=== PATIENT | female | born 1945 | race Caucasian/White ===

== ENCOUNTER 2017-11-09 06:59 | Day surgery (SDC) | payer MEDICARE ==
[~2017-11-09] VITALS: Ht 167.6 cm; Wt 54.5 kg
--- NOTE | ~2017-11-09 | OP ---
PATIENT NAME: KENNY NEELY MEDICAL RECORD: [id number] :49 LOCATION:D.OPS ADMISSION DATE: SURGEON: GIL GOMEZ MD DATE OF OPERATION: 11/09/2017 PREOPERATIVE DIAGNOSES: 1. Dysphagia. 2. Epigastric abdominal pain. 3. Gastroesophageal reflux. POSTOPERATIVE DIAGNOSES: 1. Dysphagia. 2. Epigastric abdominal pain. 3. Gastroesophageal reflux. 4. Mid esophageal circumferential mass, undoubtedly a malignancy. It was 29 cm from the teeth to 43 cm. PROCEDURES: Esophagogastroduodenoscopy with antral and mid esophageal biopsies at the site of the circumferential mass. SURGEON: Gil Gomez MD PURIFICATION SUPERVISOR: None. BLOOD LOSS: Minimal. ANESTHESIA: IV sedation. COMPLICATIONS: None. The risks, possible complications, and alternatives to the procedure were explained to the patient. She elects to proceed. The reason for the anesthesia staff being present during the procedure includes anxiety regarding the procedure and the possible need for airway manipulation and suctioning, which was necessary during the procedure. ENDOSCOPIC COURSE: The patient was conveyed to the endoscopy suite electively on 11/09/2017. IV sedation was induced by the anesthesia staff. A bite block was inserted. A gastroscope was inserted into the mouth. It was advanced easily into the hypopharynx. The esophagus was easily intubated as were the stomach and duodenum. Antral biopsies were obtained. Biopsies were liberally performed at the site of the mid esophageal mass, which was quite firm and was circumferential. The endoscope was then withdrawn under direct vision. Notified Dr. Leblanc of the endoscopic findings. I will see the patient in my office in 1 week. She will need a referral to an oncologist. TRANSINT:[id number] Voice Confirmation ID: [id number] DOCUMENT ID: [id number] OPERATIVE REPORT [id number] KENNY NEELY GIL GOMEZ MD CC: LACHELLE LEBLANC DO [id number] DICTATION DATE: 11/09/1742 SANITATION TRUCK DRIVER: 11/09/17 1046 [facility] 11/09/[address] [address]
--- NOTE | ~2017-11-09 | HP ---
PATIENT: KENNY NEELY MEDICAL RECORD: [id number] ACCOUNT: [id number] LOCATION:[facility] : 49 ADMISSION DATE: 11/09/17 HISTORY AND PHYSICAL EXAMINATION CHIEF COMPLAINT: Dysphagia. HISTORY OF PRESENT ILLNESS: The patient has been having some epigastric as well as chest pain as well as dysphagia and the dysphagia is at the level of the cricopharyngeus. I am going to plan for an EGD with esophageal dilation. ALLERGIES: TETRACYCLINE, TYLENOL, CODEINE, ERYTHROMYCIN. HOME MEDICATIONS: Celexa, Protonix, Carafate. SOCIAL HISTORY: She is a smoker, 87-[id number]-jfbv history. REVIEW OF SYSTEMS: Negative for coronary artery disease or hypertension. Negative for CVA or seizures. Negative for diabetes or thyroid problems. PHYSICAL EXAMINATION: GENERAL: She does not appear acutely ill. She does appear chronically ill. VITAL SIGNS: Reviewed. The entire physical examination was performed in the presence of a female nurse. NECK: Trachea is midline. CHEST: No intercostal retractions. PULMONARY: Nonlabored, no stridor. ABDOMEN: No peritonitis with movement. IMPRESSION: 1. Epigastric abdominal pain. 2. Gastroesophageal reflux. 3. Dysphagia. PLAN: EGD with esophageal dilation. TRANSINT:[id number] Voice Confirmation ID: [id number] DOCUMENT ID: [id number] KAYLEE GOMEZ MD CC: LACHELLE LEBLANC DO [id number] DICTATION DATE: 11/09/17903 STEREOPTICIAN: 11/09/1731 [facility] 11/09/17 [id number] [place] [address]
[~2017-11-09 06:59] MED LIST: ALEVE220 MG PO; CELEXA10 MG PO; NORCO 10/325 TA1 TA1 PO; NORCO 7.5-3251 EACH PO; PERCOCET 5/3251 TA1 PO; XARELTO10 MG PO
[2017-11-09 07:25] LABS: HEMATOCRIT 35.1 % (36.0-48.0); HEMOGLOBIN 11.4 g/dL (12-16); MCH 28.5 pg (26.0-34.0); MCHC 32.5 g/dL (31.0-37.0); MCV 87.8 fL (80.0-100.0); MEAN PLATELET VOLUME 11.4 fL (7.4-10.4); RDW 14.3 % (11.5-14.5); WBC 6.6 10x3/uL (4.8-10.8)
[2017-11-09] MEDS ORDERED: PROTONIX40 MG PO (07:46)
[2017-11-09] MEDS ORDERED: CARAFATE1 G/10 ML PO (07:46)
[2017-11-09 08:03] VITALS: BP 130/78; Ht 167.6 cm; Wt 54.5 kg
== END 2017-11-09 10:50 | disposition home or self-care (01) ==
LOC: D.OPS 06:59
PROVIDERS: Anesthesiology
DX: C15.4 Malignant neoplasm of middle third of esophagus (principal); K29.50 Unspecified chronic gastritis without bleeding; K21.9 Gastro-esophageal reflux disease without esophagitis; F17.210 Nicotine dependence, cigarettes, uncomplicated; Z88.6 Allergy status to analgesic agent; Z88.1 Allergy status to other antibiotic agents; Z88.5 Allergy status to narcotic agent; Z79.899 Other long term (current) drug therapy; Z01.812 Encounter for preprocedural laboratory examination

== ENCOUNTER → 2018-05-02 17:44 | Outpatient (CLI) | payer MEDICARE ==
[2017-11-09 08:03] VITALS: BMI 19.4
[~2018-05-02 17:44] MED LIST changes: +CARAFATE1 G/10 ML PO; +FERROUS SULFAT325 MG PO; +GABAPENTIN100 MG PO; +HYDROCODON-ACE1 EAC7 PO; +IPRAT-ALBUT 0.5-3 ML UPD; +LOPRESSOR25 MG PO; +MEGACE400 MG/10 PO; +PROTONIX40 MG PO; +REGLAN10 MG PO; +ZOFRAN8 MG PO
[2018-05-02 21:59] LABS: BASOPHILS 0.4 % (0-2); HEMATOCRIT 27.5 % (36.0-48.0); HEMOGLOBIN 8.3 g/dL (12-16); IMMATURE GRANULOCYTES 0.4 % (0-5); LYMPHOCYTES 20.8 % (15-50); MCH 28.1 pg (26.0-34.0); MCHC 30.2 g/dL (31.0-37.0); MCV 93.2 fL (80.0-100.0); MEAN PLATELET VOLUME 11.2 fL (7.4-10.4); MONOCYTES 7.6 % (2-11); NEUTROPHILS 64.8 % (40-80); RBC 2.95 10x6/uL (4.00-5.40); RDW 16.3 % (11.5-14.5); WBC 10.6 10x3/uL (4.8-10.8)
[2018-05-02 22:01] LABS: PLATELET COUNT 528 10x3/uL (130-400)
[2018-05-02 22:06] LABS: % SATURATION 12 % (15-55); IRON 16 ug/dl (35-150); TOTAL IRON BIND CAPACITY 133 ug/dl (260-445); UNSAT IRON BIND CAPACITY 117 ug/dl (150-375)
[2018-05-02 22:11] LABS: APPEARANCE CLEAR (CLEAR); BILIRUBIN NEGATIVE (NEGATIVE); COLOR YELLOW (YELLOW); GLUCOSE NEGATIVE (NEGATIVE); KETONE NEGATIVE (NEGATIVE); NITRITE NEGATIVE (NEGATIVE); PROTEIN NEGATIVE (NEGATIVE); SPECIFIC GRAVITY 1.015 (1.005-1.020); UROBILINOGEN NORMAL (NORMAL)
[2018-05-04 09:21] LABS: FOLATE (FOLIC ACID) - SERUM 19.9 ng/mL (>3.0)
== END | disposition home or self-care (01) ==
LOC: D.LABREF 17:44
PROVIDERS: Family Medicine
DX: D49.0 Neoplasm of unspecified behavior of digestive system (principal)

== ENCOUNTER 2018-06-01 15:10 | Inpatient (IN) | payer MEDICARE ==
[~2018-06-01] VITALS: Ht 165.1 cm; Wt 37.7 kg
--- NOTE | ~2018-06-01 | HP ---
PATIENT: MEENA NEELY MEDICAL RECORD: [id number] ACCOUNT: [id number] LOCATION:[address] : 49 ADMISSION DATE: 06/01/18 PCP: LACHELLE LEBLANC DO HISTORY AND PHYSICAL EXAMINATION HISTORY OF PRESENT ILLNESS: She is a 73-year-old female who presented to the office today as a work-in with a 3-day history of weakness. Per the family, she has had a decreased intake of both food and liquids. She has been weaker. She has had some pain with urination, some chills, although no fever. She has a past medical history that is significant for esophagectomy back in February of this year for esophageal cancer. She also had a pyloromyotomy and a takedown of the gastrostomy at that time. Since that time, her appetite has been improving and she has actually been able to maintain her weight until the last few days, her family says she has really not been eating or drinking much at all. PAST MEDICAL HISTORY: She has a past medical history of coronary artery disease. She has a history of some depression, has a history of some neuropathy since she has been on the chemotherapy. Postsurgical, she did have some elevated blood pressures and heart rate and has been on metoprolol since that time as well. SOCIAL HISTORY: She is a former smoker, who has 46+ pack-year history, quit in February of this year. She denies any alcohol or drug use. FAMILY HISTORY: A sister with an aneurysm and breast cancer, a brother with lupus and a brother also with diabetes. MEDICATIONS: Her home medications include Celexa 20 mg once daily, ferrous sulfate 325 mg daily, gabapentin 100 mg b.i.d., hydrocodone p.r.n. q.6 hours, metoprolol 25 mg 2 tablets 3 times daily, ondansetron p.r.n., and pantoprazole 40 mg daily. ALLERGIES: TO CODEINE, CORTISONE AND TALWIN. REVIEW OF SYSTEMS: CONSTITUTIONAL: Weight loss of about 6 pounds in the last month or so with weakness. HEENT: She denies any visual or auditory changes. She denies any sore throat, rhinorrhea or dysphagia. CARDIOPULMONARY: She denies chest pain, palpitations. She denies any cough or hemoptysis. GASTROINTESTINAL: She has had a little bit of nausea with some dry heaves. She denies any abdominal pain. Daughter states there has been some constipation. GENITOURINARY: She has had some dysuria. Denies any hematuria. MUSCULOSKELETAL: Some stiffness in her joints, but denies any specific area of joint swelling or erythema. NEUROLOGIC: She has been more lethargic, but is awake and alert, talking. PHYSICAL EXAMINATION: VITAL SIGNS: On exam today, she had a blood pressure of 98/50 with a pulse of 104, respiration of 16, temperature 99.0. HEENT: PERRL, EOMI. Pharynx dry oral mucosa. NECK: Supple, no JVD. HEART: Had S1 and S2, tachy with a I-II/ systolic ejection murmur. LUNGS: Clear with no rhonchi, rales, wheezing with poor respiratory effort. HISTORY AND PHYSICAL [id number] MEENA NEELY ABDOMEN: Soft, nontender, nondistended with normoactive bowel sounds. EXTREMITIES: No clubbing, cyanosis, or edema. NEUROLOGICAL: She was lethargic, but alert and oriented times 3 with no focal deficits. LABORATORY DATA: Her CBC showed a white count of 11.4 with an H&H of 9.8 and 33.1 with platelet count of 583. ASSESSMENT AND PLAN: At this point, with her weakness, weight loss and history, we are going to admit her with diagnosis of UTI, weakness, nausea. Panculture. IV fluids, IV Rocephin. We will lower her dose of metoprolol and put parameters on that and continue other home medicines. We will continue to follow her clinically. TRANSINT:[id number] Voice Confirmation ID: [id number] DOCUMENT ID: [id number] LACHELLE LEBLANC DO at 0737 CC: [id number] DICTATION DATE: 06/01/18 1649 CADMIUM LIQUOR MAKER: 06/01/18 1704 ADM IN [address] [place] [address]
--- NOTE | ~2018-06-01 | CN ---
PATIENT NAME:MEENA NEELY MEDICAL RECORD: [id number] : 49 LOCATION:D. D.2112 ADMIT DATE: 06/01/18 ACCOUNT: [id number] CONSULTING PHYSICIAN: CASSIE PURCELL MD REFERRING PHYSICIAN: ARSH LEBLANC DO DATE OF CONSULTATION: 06/02/2018 CONSULT REQUESTING PHYSICIAN: Arsh Leblanc MD REASON FOR CONSULTATION: Pneumonia and bilateral pleural effusion. HISTORY OF PRESENT ILLNESS: Ms. Neely is a 73-year-old female who underwent esophagectomy for esophageal carcinoma at [facility] in February this year. While she was there, she has pneumonia and treated with antibiotic. For the last few days, the patient has poor intake of eating and drinking. She is feeling very weak. She has chills, but there was no fever. There was cough without much sputum production. Denies any chest pain. REVIEW OF THE SYSTEMS: As in history of present illness. PAST MEDICAL HISTORY: 1. Coronary artery disease. 2. Recent esophageal carcinoma, status post esophagectomy. 3. Anxiety and depression. 4. History of neuropathy. 5. Hypertension. PAST SURGICAL HISTORY: She is now status post esophagectomy for CA of the esophagus. PERSONAL AND SOCIAL HISTORY: The patient is an ex-smoker. She smoked more than 61-bjqu-zcir. She quitted before her surgery in February. She is nondrinker. FAMILY HISTORY: Noncontributory. ALLERGIES: SHE IS ALLERGIC TO CODEINE, CORTISONE, AND TALWIN. MEDICATIONS: [employer] was reviewed. PHYSICAL EXAMINATION: GENERAL: Now, the patient is lying comfortably in bed. She is not in acute distress. VITAL SIGNS: The blood pressure is 109/55, pulse is 105, respirations 17, temperature 98.1, and SpO2 is 97% on 2 liters nasal cannula. HEENT: Conjunctivae are pink. Sclerae are not icteric. NECK: Neck is supple. No JVD. CHEST: The chest excursion is minimal on both sides. There are bilateral crackles and wheezes on forceful expiration. HEART: Rhythm regular. Normal sound. No murmur. ABDOMEN: Soft. Bowel sounds present. No hepatosplenomegaly. RECTAL: Deferred. EXTREMITIES: No cyanosis, no clubbing, and no pedal edema. CENTRAL NERVOUS SYSTEM: The patient is awake and alert, but she is looking very emaciated. CONSULT REPORT [id number] MEENA NEELY DIAGNOSTIC DATA: CT scan of the chest: 1. There is moderate right-sided small left pleural effusion. 2. There is huge hiatal hernia. 3. There is bilateral infiltrate. OTHER LABORATORY DATA: CBC; WBC is 12.4, hemoglobin 8.3, hematocrit 26.5, and platelet count is 474. Chemistry; sodium is 137, potassium 3.6, BUN is 19, and creatinine 1.05. IMPRESSION: 1. Jtcik-ng-xyotrkk hypoxic respiratory failure. 2. Bilateral pneumonia, most likely hospital-acquired pneumonia with the patient's recent hospitalization and surgery, possible aspiration with a huge hiatal hernia. 3. Bilateral pleural effusion, most likely parapneumonic. 4. Ex-cigarette smoker, suspect COPD. 5. Anemia, most likely secondary to GI bleed. 6. CA of esophagus. RECOMMENDATION: 1. I will discontinue Rocephin and start her on vancomycin, cefepime, and Levaquin to cover for the hospital-acquired pneumonia. 2. We will proceed with thoracentesis. 3. Albuterol/ipratropium nebulizer. 4. Agree with blood transfusion. 5. Gentle IV hydration. Followup labs and chest radiograph. Dr. Leblanc, thank you for involving me in the care of Ms. Neely. TRANSINT:[id number] Voice Confirmation ID: [id number] DOCUMENT ID: [id number] CASSIE PURCELL MD CC: [id number] DICTATION DATE: 06/02/18 1454 CELLOPHANE BAG MACHINE OPERATOR: 06/02/18 1536 ADM IN [id number] [place] [address]
--- NOTE | ~2018-06-01 | OP ---
PATIENT NAME: MEENA NEELY MEDICAL RECORD: [id number] :49 LOCATION:D.M2 D.2111 ADMISSION DATE:06/01/18 SURGEON: KAYLEE GOMEZ MD DATE OF OPERATION: 06/10/2018 PREOPERATIVE DIAGNOSES: 1. History of esophageal cancer, status post esophageal resection. 2. Chronic malnutrition. POSTOPERATIVE DIAGNOSES: 1. History of esophageal cancer, status post esophageal resection. 2. Chronic malnutrition. 3. Large amount of retained food contents within the esophageal and gastric remnants indicating lack of motility. PROCEDURE: Esophagogastroduodenojejunoscopy with conversion to open jejunostomy tube, #20 Lao. SURGEON: Kaylee Gomez MD EMPLOYMENT COACH: None. BLOOD LOSS: Minimal. ANESTHESIA: General. COMPLICATIONS: None. My initial plan was to place a PEJ that is through the patient's previous jejunostomy site. This had to be abandoned and converted to an open jejunostomy tube placement. OPERATIVE COURSE: The patient was conveyed to the operating room electively on 06/10/2018. General anesthesia was induced by the anesthesia staff. A bite block was inserted. A gastroscope was inserted into the mouth. It was advanced easily into the hypopharynx. The esophagus was easily intubated. I examined the anastomosis. I entered the stomach. The pylorus was intact and I was able to traverse the pylorus. I entered the duodenum. There was a large duodenal diverticulum. I then entered the jejunum. I was able to travel about a foot and a half down the jejunum. Utilized the CO2 insufflation. For this procedure and case, a laparoscopy or laparotomy was going to be indicated later. I then cleansed the anterior abdominal wall skin. Through the patient's prior jejunostomy scar, I advanced a small sterile needle. I was unable to visualize this endoscopically. This was after multiple attempts at advancing and withdrawing the gastroscope. The gastroscope was then removed. The abdomen was reprepped and redraped. A parasagittal incision was accomplished through the patient's prior jejunostomy scar. I dissected down to the external oblique aponeurosis, which was then opened along the direction of its fibers. I bluntly dissected down through the internal oblique and transversus abdominis muscle layers. Peritoneal cavity was entered sharply. I was able to examine the intra-abdominal contents. I noted no evidence of OPERATIVE REPORT [id number] CHINMEENA De La [place]ente bleeding. There was no ascites. I did see a loop of jejunum that was stuck up to the anterior abdominal wall. This is where the prior jejunostomy tube had been placed. Right next to it, I placed a pursestring suture of 3-0 silk. A small enterotomy was accomplished within the pursestring suture. I then placed a pull-type gastrostomy tube into the jejunum at this site and then tightened down on the pursestring suture and tied. I then sutured the jejunum to the anterior abdominal wall, the internal oblique and transversus abdominis muscles were closed with multiple interrupted horizontal mattress #1 Vicryl. The external oblique aponeurosis was closed with running #1 Vicryl. The subdermis was approximated with interrupted 3-0 Vicryls. The skin was approximated with metallic clips. The patient was then extubated and conveyed to post-anesthesia care unit where she was in stable condition. We will leave her jejunostomy tube to gravity drainage and plan start feeding her tomorrow. TRANSINT:[id number] Voice Confirmation ID: [id number] DOCUMENT ID: [id number] KAYLEE GOMEZ MD at 2120 CC: LACHELLE LEBLANC DO [id number] DICTATION DATE: 06/10/181949 DRAMATIC AGENT: 06/10/[address] [facility] [address] [id number]
[~2018-06-01 15:10] MED LIST changes: -FERROUS SULFAT325 MG PO; -GABAPENTIN100 MG PO; -HYDROCODON-ACE1 EAC7 PO; -IPRAT-ALBUT 0.5-3 ML UPD; -LOPRESSOR25 MG PO; -MEGACE400 MG/10 PO; -REGLAN10 MG PO; -ZOFRAN8 MG PO
[2018-06-01] MEDS ORDERED: LOPRESSOR25 MG PO (15:42)
[2018-06-01] MEDS ORDERED: HYDROCODON-ACE1 EAC7 PO (15:43)
[2018-06-01] MEDS ORDERED: GABAPENTIN100 MG PO (15:44)
[2018-06-01] MEDS ORDERED: ZOFRAN8 MG PO (15:45)
[2018-06-01] MEDS ORDERED: FERROUS SULFAT325 MG PO (15:46)
[2018-06-01 16:01] VITALS: BP 115/66; BMI 14.2
[2018-06-01 17:27] LABS: BASOPHILS 0.1 % (0-2); EOSINOPHILS 0.7 % (0-7); HEMATOCRIT 34.6 % (36.0-48.0); HEMOGLOBIN 10.7 g/dL (12-16); IMMATURE GRANULOCYTES 0.5 % (0-5); LYMPHOCYTES 5.1 % (15-50); MCH 26.4 pg (26.0-34.0); MCHC 30.9 g/dL (31.0-37.0); MCV 85.2 fL (80.0-100.0); MEAN PLATELET VOLUME 10.7 fL (7.4-10.4); MONOCYTES 3.4 % (2-11); NEUTROPHILS 90.2 % (40-80); PLATELET COUNT 581 10x3/uL (130-400); RBC 4.06 10x6/uL (4.00-5.40); RDW 17.1 % (11.5-14.5); WBC 12.4 10x3/uL (4.8-10.8)
[2018-06-01 17:54] LABS: ALBUMIN 2.1 g/dL (3.4-5.0); ALKALINE PHOSPHATASE 190 U/L (46-116); ALT (SGPT) 18 U/L (10-68); BILIRUBIN - TOTAL 0.28 mg/dL (0.2-1.3); CALC OSMOLALITY 270 mosm/kg (275-300); CALCIUM 9.1 mg/dL (8.5-10.1); CARBON DIOXIDE 32.3 mmol/L (21.0-32.0); CHLORIDE - SERUM 96 mmol/L (98-107); CREATININE - SERUM 0.5 mg/dL (0.6-1.3); GLUCOSE 119 mg/dL (74-106); POTASSIUM - SERUM 5.1 mmol/L (3.5-5.1); PROTEIN - SERUM 7.6 g/dL (6.4-8.2); SODIUM 134 mmol/L (136-145); UREA NITROGEN 18 mg/dL (7-18); eGFR NON AFRICAN AMERICAN > 90 mL/min (90-120)
[2018-06-01 18:03] LABS: APPEARANCE HAZY (CLEAR); BILIRUBIN NEGATIVE (NEGATIVE); COLOR YELLOW (YELLOW); GLUCOSE NEGATIVE (NEGATIVE); KETONE MODERATE mg/dL (NEGATIVE); NITRITE POSITIVE (NEGATIVE); PROTEIN TRACE mg/dL (NEGATIVE); SPECIFIC GRAVITY 1.015 (1.005-1.020); UROBILINOGEN NORMAL (NORMAL)
[2018-06-01 18:04] LABS: AMYLASE - SERUM 29 U/L (25-115); LIPASE 71 U/L (73-393); THYROID STIMULATING HORMONE 1.87 uIU/mL (0.36-3.74)
[2018-06-01 18:04] LABS: BACTERIA MANY /hpf (NONE SEEN); EPITHELIAL CELLS 0-5 /hpf (0-5); WHITE CELLS - URINE >50 /hpf (0-5)
[2018-06-01 20:00] VITALS: BP 103/60
[2018-06-02] VITALS (8 sets, daily range): BP systolic 95–128; BP diastolic 52–69; BMI 14.4
[2018-06-02 04:18] LABS: BASOPHILS 0.2 % (0-2); IMMATURE GRANULOCYTES 0.6 % (0-5); LYMPHOCYTES 11.7 % (15-50); MCH 26.3 pg (26.0-34.0); MCHC 31.3 g/dL (31.0-37.0); MCV 84.1 fL (80.0-100.0); MEAN PLATELET VOLUME 10.7 fL (7.4-10.4); MONOCYTES 6.7 % (2-11); NEUTROPHILS 78.8 % (40-80); PLATELET COUNT 474 10x3/uL (130-400); RDW 17.5 % (11.5-14.5); WBC 12.4 10x3/uL (4.8-10.8)
[2018-06-02 04:33] LABS: HEMATOCRIT 26.5 % (36.0-48.0); HEMOGLOBIN 8.3 g/dL (12-16); RBC 3.15 10x6/uL (4.00-5.40)
[2018-06-02 04:37] LABS: ALKALINE PHOSPHATASE 136 U/L (46-116); ALT (SGPT) 15 U/L (10-68); BILIRUBIN - TOTAL 0.15 mg/dL (0.2-1.3); CALC OSMOLALITY 276 mosm/kg (275-300); CALCIUM 8.3 mg/dL (8.5-10.1); CARBON DIOXIDE 33.3 mmol/L (21.0-32.0); CHLORIDE - SERUM 100 mmol/L (98-107); CREATININE - SERUM 0.5 mg/dL (0.6-1.3); GLUCOSE 112 mg/dL (74-106); PROTEIN - SERUM 6.3 g/dL (6.4-8.2); SODIUM 137 mmol/L (136-145); UREA NITROGEN 19 mg/dL (7-18); eGFR NON AFRICAN AMERICAN > 90 mL/min (90-120)
[2018-06-02 04:38] LABS: ALBUMIN 1.5 g/dL (3.4-5.0); POTASSIUM - SERUM 3.6 mmol/L (3.5-5.1)
[2018-06-02 19:29] LABS: MACROPHAGES BF 6 %; NEUT - BF 13 %
[2018-06-03 04:00] VITALS: BP 132/77
[2018-06-03 05:46] LABS: HEMATOCRIT 28.2 % (36.0-48.0); LYMPHOCYTES 14.7 % (15-50); MCH 27.3 pg (26.0-34.0); MCHC 31.9 g/dL (31.0-37.0); MCV 85.5 fL (80.0-100.0); MEAN PLATELET VOLUME 10.4 fL (7.4-10.4); NEUTROPHILS 75.9 % (40-80); PLATELET COUNT 381 10x3/uL (130-400); RDW 16.5 % (11.5-14.5); WBC 9.5 10x3/uL (4.8-10.8)
[2018-06-03 05:53] LABS: ALBUMIN 1.3 g/dL (3.4-5.0); ALKALINE PHOSPHATASE 144 U/L (46-116); ALT (SGPT) 16 U/L (10-68); CALC OSMOLALITY 267 mosm/kg (275-300); CALCIUM 8.2 mg/dL (8.5-10.1); CARBON DIOXIDE 31.3 mmol/L (21.0-32.0); CHLORIDE - SERUM 103 mmol/L (98-107); CREATININE - SERUM 0.5 mg/dL (0.6-1.3); GLUCOSE 87 mg/dL (74-106); MAGNESIUM - SERUM 1.5 mg/dL (1.8-2.4); PHOSPHOROUS 2.4 mg/dL (2.5-4.9); POTASSIUM - SERUM 3.6 mmol/L (3.5-5.1); PROTEIN - SERUM 5.7 g/dL (6.4-8.2); SODIUM 135 mmol/L (136-145); eGFR NON AFRICAN AMERICAN > 90 mL/min (90-120)
[2018-06-03 05:54] LABS: UREA NITROGEN 10 mg/dL (7-18)
[2018-06-03 09:30] VITALS: BP 125/74
[2018-06-03 12:56] VITALS: BP 130/81
[2018-06-03 13:19] LABS: FUNGUS STAIN Final report (())
[2018-06-03 16:35] VITALS: BP 134/64
[2018-06-03 18:10] LABS: ACID FAST SMEAR Negative (()); AFB SPECIMEN PROCESSING Concentration (())
[2018-06-03 20:39] VITALS: BP 148/83
[2018-06-04 04:00] VITALS: BP 144/78
[2018-06-04 05:18] LABS: BASOPHILS 0.3 % (0-2); EOSINOPHILS 3.6 % (0-7); HEMATOCRIT 29.1 % (36.0-48.0); IMMATURE GRANULOCYTES 0.5 % (0-5); MCH 26.4 pg (26.0-34.0); MCHC 30.9 g/dL (31.0-37.0); MCV 85.3 fL (80.0-100.0); MONOCYTES 8.9 % (2-11); NEUTROPHILS 74.7 % (40-80); PLATELET COUNT 423 10x3/uL (130-400); RBC 3.41 10x6/uL (4.00-5.40); RDW 16.9 % (11.5-14.5); WBC 9.7 10x3/uL (4.8-10.8)
[2018-06-04 05:50] LABS: ALBUMIN 1.2 g/dL (3.4-5.0); ALKALINE PHOSPHATASE 146 U/L (46-116); ALT (SGPT) 15 U/L (10-68); BILIRUBIN - TOTAL 0.24 mg/dL (0.2-1.3); CALC OSMOLALITY 275 mosm/kg (275-300); CALCIUM 8.1 mg/dL (8.5-10.1); CARBON DIOXIDE 32.3 mmol/L (21.0-32.0); CHLORIDE - SERUM 103 mmol/L (98-107); CREATININE - SERUM 0.4 mg/dL (0.6-1.3); GLUCOSE 99 mg/dL (74-106); MAGNESIUM - SERUM 1.5 mg/dL (1.8-2.4); POTASSIUM - SERUM 3.1 mmol/L (3.5-5.1); PROTEIN - SERUM 5.5 g/dL (6.4-8.2); SODIUM 139 mmol/L (136-145); eGFR NON AFRICAN AMERICAN > 90 mL/min (90-120)
[2018-06-04 05:56] LABS: UREA NITROGEN 6 mg/dL (7-18)
[2018-06-04 07:45] VITALS: BP 137/77
[2018-06-04 10:41] VITALS: BP 132/71
[2018-06-04 15:09] VITALS: BP 126/64
[2018-06-04 19:36] VITALS: Ht 165.1 cm; Wt 37.7 kg
[2018-06-04 20:00] VITALS: BP 128/82
[2018-06-05] VITALS: BP 141/85
[2018-06-05 04:00] VITALS: BP 134/88
[2018-06-05 05:04] LABS: BASOPHILS 0.2 % (0-2); EOSINOPHILS 5.5 % (0-7); HEMATOCRIT 31.2 % (36.0-48.0); HEMOGLOBIN 9.8 g/dL (12-16); IMMATURE GRANULOCYTES 0.5 % (0-5); LYMPHOCYTES 14.1 % (15-50); MCH 26.8 pg (26.0-34.0); MCHC 31.4 g/dL (31.0-37.0); MCV 85.5 fL (80.0-100.0); MEAN PLATELET VOLUME 10.6 fL (7.4-10.4); MONOCYTES 9.7 % (2-11); PLATELET COUNT 426 10x3/uL (130-400); RBC 3.65 10x6/uL (4.00-5.40); RDW 17.1 % (11.5-14.5); WBC 9.8 10x3/uL (4.8-10.8)
[2018-06-05 05:17] LABS: APTT 41.1 SECONDS (22.8-39.4); INR 1.06 (0.85-1.17); PROTIME 13.4 SECONDS (11.6-15.0)
[2018-06-05 05:27] LABS: ALBUMIN 1.4 g/dL (3.4-5.0); ALKALINE PHOSPHATASE 162 U/L (46-116); ALT (SGPT) 13 U/L (10-68); BILIRUBIN - TOTAL 0.29 mg/dL (0.2-1.3); CALCIUM 8.6 mg/dL (8.5-10.1); CARBON DIOXIDE 31.5 mmol/L (21.0-32.0); CHLORIDE - SERUM 101 mmol/L (98-107); GLUCOSE 84 mg/dL (74-106); MAGNESIUM - SERUM 1.6 mg/dL (1.8-2.4); PHOSPHOROUS 2.9 mg/dL (2.5-4.9); PROTEIN - SERUM 6.3 g/dL (6.4-8.2); SODIUM 136 mmol/L (136-145)
[2018-06-05 05:33] LABS: CALC OSMOLALITY 267 mosm/kg (275-300); CREATININE - SERUM 0.6 mg/dL (0.6-1.3); UREA NITROGEN 4 mg/dL (7-18); eGFR NON AFRICAN AMERICAN > 90 mL/min (90-120)
[2018-06-05 06:00] VITALS: BP 159/88
[2018-06-05 20:00] VITALS: BP 125/75
[2018-06-06 04:00] VITALS: BP 144/88
[2018-06-06 05:52] LABS: BASOPHILS 0.3 % (0-2); EOSINOPHILS 5.8 % (0-7); HEMOGLOBIN 8.9 g/dL (12-16); IMMATURE GRANULOCYTES 0.9 % (0-5); LYMPHOCYTES 13.4 % (15-50); MCH 26.5 pg (26.0-34.0); MCHC 30.7 g/dL (31.0-37.0); MCV 86.3 fL (80.0-100.0); MEAN PLATELET VOLUME 11.2 fL (7.4-10.4); MONOCYTES 10.3 % (2-11); NEUTROPHILS 69.3 % (40-80); PLATELET COUNT 394 10x3/uL (130-400); RBC 3.36 10x6/uL (4.00-5.40); RDW 17.4 % (11.5-14.5); WBC 7.5 10x3/uL (4.8-10.8)
[2018-06-06 06:27] LABS: ALBUMIN 1.3 g/dL (3.4-5.0); ALKALINE PHOSPHATASE 146 U/L (46-116); ALT (SGPT) 13 U/L (10-68); BILIRUBIN - TOTAL 0.22 mg/dL (0.2-1.3); CALC OSMOLALITY 269 mosm/kg (275-300); CALCIUM 8.4 mg/dL (8.5-10.1); CARBON DIOXIDE 32.6 mmol/L (21.0-32.0); CHLORIDE - SERUM 102 mmol/L (98-107); CREATININE - SERUM 0.6 mg/dL (0.6-1.3); GLUCOSE 77 mg/dL (74-106); MAGNESIUM - SERUM 1.8 mg/dL (1.8-2.4); PHOSPHOROUS 3.2 mg/dL (2.5-4.9); POTASSIUM - SERUM 3.8 mmol/L (3.5-5.1); PROTEIN - SERUM 5.6 g/dL (6.4-8.2); SODIUM 137 mmol/L (136-145); UREA NITROGEN 5 mg/dL (7-18); eGFR NON AFRICAN AMERICAN > 90 mL/min (90-120)
[2018-06-06 09:21] VITALS: BP 115/63
[2018-06-06 11:51] VITALS: BP 144/81
[2018-06-06 16:35] VITALS: BP 143/85
[2018-06-06 20:00] VITALS: BP 148/88
[2018-06-07 00:04] VITALS: BP 150/88
[2018-06-07 04:00] VITALS: BP 152/87
[2018-06-07 05:38] LABS: BASOPHILS 0.4 % (0-2); EOSINOPHILS 6.2 % (0-7); HEMOGLOBIN 9.4 g/dL (12-16); IMMATURE GRANULOCYTES 0.6 % (0-5); LYMPHOCYTES 14.2 % (15-50); MCH 26.3 pg (26.0-34.0); MCHC 30.3 g/dL (31.0-37.0); MCV 86.8 fL (80.0-100.0); MEAN PLATELET VOLUME 10.8 fL (7.4-10.4); MONOCYTES 8.5 % (2-11); NEUTROPHILS 70.1 % (40-80); PLATELET COUNT 385 10x3/uL (130-400); RBC 3.57 10x6/uL (4.00-5.40); RDW 17.5 % (11.5-14.5)
[2018-06-07 05:50] LABS: ALBUMIN 1.4 g/dL (3.4-5.0); ALKALINE PHOSPHATASE 146 U/L (46-116); ALT (SGPT) 14 U/L (10-68); BILIRUBIN - TOTAL 0.24 mg/dL (0.2-1.3); CALC OSMOLALITY 265 mosm/kg (275-300); CALCIUM 8.6 mg/dL (8.5-10.1); CARBON DIOXIDE 34.3 mmol/L (21.0-32.0); CHLORIDE - SERUM 100 mmol/L (98-107); CREATININE - SERUM 0.6 mg/dL (0.6-1.3); GLUCOSE 88 mg/dL (74-106); MAGNESIUM - SERUM 1.7 mg/dL (1.8-2.4); PHOSPHOROUS 3.3 mg/dL (2.5-4.9); POTASSIUM - SERUM 3.9 mmol/L (3.5-5.1); SODIUM 134 mmol/L (136-145); eGFR NON AFRICAN AMERICAN > 90 mL/min (90-120)
[2018-06-07 05:51] LABS: UREA NITROGEN 9 mg/dL (7-18)
[2018-06-07 07:40] VITALS: BP 148/84
[2018-06-07 11:37] VITALS: BP 155/83
[2018-06-07 15:16] VITALS: BP 149/88
[2018-06-07 21:00] VITALS: BP 138/85
[2018-06-08 04:40] LABS: BASOPHILS 0.4 % (0-2); EOSINOPHILS 5.1 % (0-7); HEMATOCRIT 29.1 % (36.0-48.0); HEMOGLOBIN 8.9 g/dL (12-16); IMMATURE GRANULOCYTES 0.8 % (0-5); LYMPHOCYTES 14.5 % (15-50); MCH 26.4 pg (26.0-34.0); MCHC 30.6 g/dL (31.0-37.0); MCV 86.4 fL (80.0-100.0); MONOCYTES 10.3 % (2-11); NEUTROPHILS 68.9 % (40-80); PLATELET COUNT 369 10x3/uL (130-400); RBC 3.37 10x6/uL (4.00-5.40); RDW 17.6 % (11.5-14.5); WBC 7.3 10x3/uL (4.8-10.8)
[2018-06-08 05:08] LABS: ALBUMIN 1.4 g/dL (3.4-5.0); ALKALINE PHOSPHATASE 142 U/L (46-116); ALT (SGPT) 13 U/L (10-68); BILIRUBIN - TOTAL 0.18 mg/dL (0.2-1.3); CALC OSMOLALITY 267 mosm/kg (275-300); CALCIUM 8.5 mg/dL (8.5-10.1); CARBON DIOXIDE 34.2 mmol/L (21.0-32.0); CHLORIDE - SERUM 101 mmol/L (98-107); CREATININE - SERUM 0.5 mg/dL (0.6-1.3); GLUCOSE 94 mg/dL (74-106); MAGNESIUM - SERUM 1.7 mg/dL (1.8-2.4); PHOSPHOROUS 2.9 mg/dL (2.5-4.9); PROTEIN - SERUM 5.9 g/dL (6.4-8.2); SODIUM 134 mmol/L (136-145); UREA NITROGEN 12 mg/dL (7-18); eGFR NON AFRICAN AMERICAN > 90 mL/min (90-120)
[2018-06-08 05:42] VITALS: BP 152/81
[2018-06-08 07:05] LABS: AMYLASE - SERUM 20 U/L (25-115); LIPASE 57 U/L (73-393)
[2018-06-08 07:22] VITALS: BP 151/81
[2018-06-08 11:25] VITALS: BP 151/88
[2018-06-08 14:24] LABS: FUNGUS MYCOLOGY CULTURE Preliminary report (())
[2018-06-08 15:05] VITALS: BP 138/80
[2018-06-08 20:56] VITALS: BP 134/71
[2018-06-09 04:17] LABS: BASOPHILS 0.6 % (0-2); EOSINOPHILS 4.4 % (0-7); HEMOGLOBIN 9.2 g/dL (12-16); IMMATURE GRANULOCYTES 0.8 % (0-5); LYMPHOCYTES 11.6 % (15-50); MCH 26.2 pg (26.0-34.0); MCHC 30.7 g/dL (31.0-37.0); MCV 85.5 fL (80.0-100.0); NEUTROPHILS 74.6 % (40-80); PLATELET COUNT 355 10x3/uL (130-400); RBC 3.51 10x6/uL (4.00-5.40); RDW 17.7 % (11.5-14.5); WBC 8.7 10x3/uL (4.8-10.8)
[2018-06-09 04:37] LABS: ALBUMIN 1.4 g/dL (3.4-5.0); ALKALINE PHOSPHATASE 146 U/L (46-116); ALT (SGPT) 12 U/L (10-68); AMYLASE - SERUM 24 U/L (25-115); BILIRUBIN - TOTAL 0.18 mg/dL (0.2-1.3); CALC OSMOLALITY 270 mosm/kg (275-300); CALCIUM 8.4 mg/dL (8.5-10.1); CARBON DIOXIDE 35.2 mmol/L (21.0-32.0); CHLORIDE - SERUM 99 mmol/L (98-107); CREATININE - SERUM 0.6 mg/dL (0.6-1.3); GLUCOSE 92 mg/dL (74-106); LIPASE 59 U/L (73-393); MAGNESIUM - SERUM 1.8 mg/dL (1.8-2.4); PHOSPHOROUS 2.6 mg/dL (2.5-4.9); POTASSIUM - SERUM 4.1 mmol/L (3.5-5.1); PROTEIN - SERUM 6.1 g/dL (6.4-8.2); SODIUM 135 mmol/L (136-145); UREA NITROGEN 15 mg/dL (7-18); eGFR NON AFRICAN AMERICAN > 90 mL/min (90-120)
[2018-06-09 06:09] VITALS: BP 127/72
[2018-06-09 07:53] VITALS: BP 124/69
[2018-06-09 12:29] VITALS: BP 130/78
[2018-06-09 17:35] VITALS: BP 145/81
[2018-06-09 18:52] LABS: APPEARANCE CLEAR (CLEAR); BILIRUBIN NEGATIVE (NEGATIVE); COLOR STRAW (YELLOW); GLUCOSE NEGATIVE (NEGATIVE); KETONE NEGATIVE (NEGATIVE); NITRITE NEGATIVE (NEGATIVE); PROTEIN NEGATIVE (NEGATIVE); UROBILINOGEN NORMAL (NORMAL)
[2018-06-09 18:58] LABS: BACTERIA FEW /hpf (NONE SEEN); EPITHELIAL CELLS 0-5 /hpf (0-5); RED CELLS - URINE 0-5 /hpf (0-5); WHITE CELLS - URINE 0-5 /hpf (0-5)
[2018-06-09 21:16] VITALS: BP 141/84
[2018-06-10 05:17] LABS: BASOPHILS 0.4 % (0-2); EOSINOPHILS 4.8 % (0-7); HEMATOCRIT 30.8 % (36.0-48.0); HEMOGLOBIN 9.6 g/dL (12-16); IMMATURE GRANULOCYTES 1.7 % (0-5); LYMPHOCYTES 14.8 % (15-50); MCH 26.2 pg (26.0-34.0); MCHC 31.2 g/dL (31.0-37.0); MCV 84.2 fL (80.0-100.0); MEAN PLATELET VOLUME 10.8 fL (7.4-10.4); MONOCYTES 10.2 % (2-11); NEUTROPHILS 68.1 % (40-80); PLATELET COUNT 341 10x3/uL (130-400); RBC 3.66 10x6/uL (4.00-5.40); RDW 17.6 % (11.5-14.5); WBC 7.4 10x3/uL (4.8-10.8)
[2018-06-10 05:52] VITALS: BP 141/86
[2018-06-10 05:52] LABS: ALBUMIN 1.6 g/dL (3.4-5.0); ALKALINE PHOSPHATASE 151 U/L (46-116); ALT (SGPT) 12 U/L (10-68); BILIRUBIN - TOTAL 0.13 mg/dL (0.2-1.3); CALC OSMOLALITY 268 mosm/kg (275-300); CALCIUM 8.9 mg/dL (8.5-10.1); CHLORIDE - SERUM 99 mmol/L (98-107); CREATININE - SERUM 0.5 mg/dL (0.6-1.3); GLUCOSE 95 mg/dL (74-106); MAGNESIUM - SERUM 1.8 mg/dL (1.8-2.4); PHOSPHOROUS 2.7 mg/dL (2.5-4.9); POTASSIUM - SERUM 4.5 mmol/L (3.5-5.1); PROTEIN - SERUM 6.3 g/dL (6.4-8.2); SODIUM 134 mmol/L (136-145); UREA NITROGEN 15 mg/dL (7-18); eGFR NON AFRICAN AMERICAN > 90 mL/min (90-120)
[2018-06-10 07:59] VITALS: BP 129/83
[2018-06-10 11:03] VITALS: BP 111/82
[2018-06-10 15:12] VITALS: BP 142/80
[2018-06-10 22:45] VITALS: BP 149/76
[2018-06-11 00:59] VITALS: BP 146/80
[2018-06-11 05:10] LABS: BASOPHILS 0.3 % (0-2); EOSINOPHILS 1.9 % (0-7); HEMATOCRIT 31.8 % (36.0-48.0); HEMOGLOBIN 9.9 g/dL (12-16); IMMATURE GRANULOCYTES 0.9 % (0-5); LYMPHOCYTES 11.5 % (15-50); MCH 26.5 pg (26.0-34.0); MCHC 31.1 g/dL (31.0-37.0); MONOCYTES 6.8 % (2-11); NEUTROPHILS 78.6 % (40-80); PLATELET COUNT 362 10x3/uL (130-400); RBC 3.74 10x6/uL (4.00-5.40); RDW 17.6 % (11.5-14.5)
[2018-06-11 05:24] LABS: WBC 10.4 10x3/uL (4.8-10.8)
[2018-06-11 05:30] LABS: ALBUMIN 1.6 g/dL (3.4-5.0); ALKALINE PHOSPHATASE 140 U/L (46-116); ALT (SGPT) 10 U/L (10-68); BILIRUBIN - TOTAL 0.24 mg/dL (0.2-1.3); CALC OSMOLALITY 270 mosm/kg (275-300); CALCIUM 8.8 mg/dL (8.5-10.1); CARBON DIOXIDE 30.2 mmol/L (21.0-32.0); CHLORIDE - SERUM 99 mmol/L (98-107); CREATININE - SERUM 0.5 mg/dL (0.6-1.3); GLUCOSE 94 mg/dL (74-106); MAGNESIUM - SERUM 1.6 mg/dL (1.8-2.4); PHOSPHOROUS 3.2 mg/dL (2.5-4.9); POTASSIUM - SERUM 4.5 mmol/L (3.5-5.1); PROTEIN - SERUM 6.4 g/dL (6.4-8.2); SODIUM 135 mmol/L (136-145); UREA NITROGEN 15 mg/dL (7-18); eGFR NON AFRICAN AMERICAN > 90 mL/min (90-120)
[2018-06-11 06:43] VITALS: BP 154/103
[2018-06-11 07:57] VITALS: BP 150/85
[2018-06-11 11:59] VITALS: BP 129/79
[2018-06-11 15:12] VITALS: BP 134/79
[2018-06-11 20:30] VITALS: BP 125/75
[2018-06-12 06:12] LABS: BASOPHILS 0.4 % (0-2); EOSINOPHILS 4.8 % (0-7); HEMATOCRIT 31.3 % (36.0-48.0); HEMOGLOBIN 9.7 g/dL (12-16); IMMATURE GRANULOCYTES 0.6 % (0-5); LYMPHOCYTES 16.1 % (15-50); MCH 26.4 pg (26.0-34.0); MCV 85.1 fL (80.0-100.0); MEAN PLATELET VOLUME 11.4 fL (7.4-10.4); MONOCYTES 9.5 % (2-11); NEUTROPHILS 68.6 % (40-80); PLATELET COUNT 348 10x3/uL (130-400); RBC 3.68 10x6/uL (4.00-5.40); RDW 17.6 % (11.5-14.5)
[2018-06-12 06:30] LABS: CALC OSMOLALITY 271 mosm/kg (275-300); CALCIUM 9.2 mg/dL (8.5-10.1); CARBON DIOXIDE 31.3 mmol/L (21.0-32.0); CHLORIDE - SERUM 98 mmol/L (98-107); CREATININE - SERUM 0.5 mg/dL (0.6-1.3); GLUCOSE 86 mg/dL (74-106); MAGNESIUM - SERUM 1.8 mg/dL (1.8-2.4); PHOSPHOROUS 3.1 mg/dL (2.5-4.9); POTASSIUM - SERUM 4.4 mmol/L (3.5-5.1); SODIUM 136 mmol/L (136-145); UREA NITROGEN 16 mg/dL (7-18); eGFR NON AFRICAN AMERICAN > 90 mL/min (90-120)
[2018-06-12 08:20] VITALS: BP 123/76
[2018-06-12 11:36] VITALS: BP 123/74
[2018-06-12 16:19] VITALS: BP 119/71
[2018-06-12 23:17] VITALS: BP 110/66
[2018-06-13 06:13] LABS: BASOPHILS 0.6 % (0-2); EOSINOPHILS 3.4 % (0-7); HEMATOCRIT 32.1 % (36.0-48.0); HEMOGLOBIN 10.1 g/dL (12-16); IMMATURE GRANULOCYTES 0.6 % (0-5); LYMPHOCYTES 14.5 % (15-50); MCH 26.7 pg (26.0-34.0); MCHC 31.5 g/dL (31.0-37.0); MCV 84.9 fL (80.0-100.0); MONOCYTES 9.4 % (2-11); NEUTROPHILS 71.5 % (40-80); PLATELET COUNT 310 10x3/uL (130-400); RBC 3.78 10x6/uL (4.00-5.40); RDW 17.6 % (11.5-14.5); WBC 6.7 10x3/uL (4.8-10.8)
[2018-06-13 06:25] VITALS: BP 129/78
[2018-06-13 06:28] LABS: ALBUMIN 1.7 g/dL (3.4-5.0); ALKALINE PHOSPHATASE 166 U/L (46-116); ALT (SGPT) 11 U/L (10-68); BILIRUBIN - TOTAL 0.16 mg/dL (0.2-1.3); CALC OSMOLALITY 264 mosm/kg (275-300); CARBON DIOXIDE 31.7 mmol/L (21.0-32.0); CHLORIDE - SERUM 96 mmol/L (98-107); CREATININE - SERUM 0.5 mg/dL (0.6-1.3); GLUCOSE 96 mg/dL (74-106); MAGNESIUM - SERUM 1.5 mg/dL (1.8-2.4); PHOSPHOROUS 3.2 mg/dL (2.5-4.9); POTASSIUM - SERUM 4.6 mmol/L (3.5-5.1); PROTEIN - SERUM 6.7 g/dL (6.4-8.2); SODIUM 131 mmol/L (136-145); UREA NITROGEN 18 mg/dL (7-18); eGFR NON AFRICAN AMERICAN > 90 mL/min (90-120)
[2018-06-13 08:55] VITALS: BP 108/70
[2018-06-13 12:48] VITALS: BP 124/77
[2018-06-13 15:53] VITALS: BP 121/75
[2018-06-13 21:20] VITALS: BP 121/78
[2018-06-14 05:51] VITALS: BP 123/75
[2018-06-14 06:23] LABS: BASOPHILS 0.6 % (0-2); EOSINOPHILS 4.3 % (0-7); HEMATOCRIT 31.4 % (36.0-48.0); HEMOGLOBIN 9.7 g/dL (12-16); IMMATURE GRANULOCYTES 0.4 % (0-5); LYMPHOCYTES 15.1 % (15-50); MCHC 30.9 g/dL (31.0-37.0); MCV 84.2 fL (80.0-100.0); MONOCYTES 12.3 % (2-11); NEUTROPHILS 67.3 % (40-80); PLATELET COUNT 334 10x3/uL (130-400); RBC 3.73 10x6/uL (4.00-5.40); RDW 17.9 % (11.5-14.5)
[2018-06-14 06:42] LABS: ALBUMIN 1.7 g/dL (3.4-5.0); ALKALINE PHOSPHATASE 188 U/L (46-116); BILIRUBIN - TOTAL 0.22 mg/dL (0.2-1.3); CALC OSMOLALITY 267 mosm/kg (275-300); CALCIUM 8.9 mg/dL (8.5-10.1); CARBON DIOXIDE 32.1 mmol/L (21.0-32.0); CHLORIDE - SERUM 98 mmol/L (98-107); CREATININE - SERUM 0.5 mg/dL (0.6-1.3); GLUCOSE 91 mg/dL (74-106); MAGNESIUM - SERUM 1.7 mg/dL (1.8-2.4); PHOSPHOROUS 3.1 mg/dL (2.5-4.9); POTASSIUM - SERUM 4.4 mmol/L (3.5-5.1); PROTEIN - SERUM 6.6 g/dL (6.4-8.2); SODIUM 133 mmol/L (136-145); UREA NITROGEN 19 mg/dL (7-18); eGFR NON AFRICAN AMERICAN > 90 mL/min (90-120)
[2018-06-14 06:43] LABS: ALT (SGPT) 14 U/L (10-68)
[2018-06-14 08:07] VITALS: BP 131/80
[2018-06-14 11:02] VITALS: BP 124/75
[2018-06-14 15:56] VITALS: BP 114/71
[2018-06-14 20:00] VITALS: BP 119/72
[2018-06-15 06:54] LABS: BASOPHILS 0.2 % (0-2); EOSINOPHILS 3.2 % (0-7); HEMATOCRIT 30.6 % (36.0-48.0); HEMOGLOBIN 9.6 g/dL (12-16); IMMATURE GRANULOCYTES 0.4 % (0-5); LYMPHOCYTES 13.1 % (15-50); MCH 26.2 pg (26.0-34.0); MCHC 31.4 g/dL (31.0-37.0); MCV 83.4 fL (80.0-100.0); MEAN PLATELET VOLUME 12.4 fL (7.4-10.4); MONOCYTES 11.7 % (2-11); NEUTROPHILS 71.4 % (40-80); PLATELET COUNT 327 10x3/uL (130-400); RBC 3.67 10x6/uL (4.00-5.40); RDW 17.8 % (11.5-14.5); WBC 8.4 10x3/uL (4.8-10.8)
[2018-06-15 07:33] LABS: ALBUMIN 1.8 g/dL (3.4-5.0); ALKALINE PHOSPHATASE 236 U/L (46-116); ALT (SGPT) 31 U/L (10-68); BILIRUBIN - TOTAL 0.17 mg/dL (0.2-1.3); CALC OSMOLALITY 270 mosm/kg (275-300); CARBON DIOXIDE 30.4 mmol/L (21.0-32.0); CHLORIDE - SERUM 99 mmol/L (98-107); CREATININE - SERUM 0.5 mg/dL (0.6-1.3); GLUCOSE 99 mg/dL (74-106); MAGNESIUM - SERUM 1.7 mg/dL (1.8-2.4); POTASSIUM - SERUM 4.4 mmol/L (3.5-5.1); PROTEIN - SERUM 6.7 g/dL (6.4-8.2); SODIUM 135 mmol/L (136-145); UREA NITROGEN 16 mg/dL (7-18); eGFR NON AFRICAN AMERICAN > 90 mL/min (90-120)
[2018-06-15 07:57] VITALS: BP 109/61
[2018-06-15 11:18] VITALS: BP 105/75
[2018-06-15] MEDS ORDERED: IPRAT-ALBUT 0.5-3 ML UPD (15:30)
[2018-06-15] MEDS ORDERED: CARAFATE1 G/10 ML PO (15:31)
[2018-06-15] MEDS ORDERED: MEGACE400 MG/10 PO (15:31)
[2018-06-15] MEDS ORDERED: REGLAN10 MG PO (15:32)
[2018-06-15 15:48] VITALS: BP 124/74
== END 2018-06-15 17:42 | DRG 329 ==
LOC: D.OPS 15:10 → D.M2 15:11
PROVIDERS: Family Medicine; Internal Medicine Gastroenterology; Internal Medicine Pulmonary Disease; Radiology Vascular & Interventional Radiology; Surgery
PROC: 0W993ZZ Drainage of Right Pleural Cavity, Percutaneous Approach (ICD-10-PCS; principal; 2018-06-02 15:30)
PROC: 0DJ08ZZ Inspection of Upper Intestinal Tract, Via Natural or Artificial Opening Endoscopic (ICD-10-PCS; 2018-06-05)
PROC: 0D1A0Z4 Bypass Jejunum to Cutaneous, Open Approach (ICD-10-PCS; 2018-06-10 16:00)
DX: K22.5 Diverticulum of esophagus, acquired (principal); J69.0 Pneumonitis due to inhalation of food and vomit; J96.21 Acute and chronic respiratory failure with hypoxia; N39.0 Urinary tract infection, site not specified; E46 Unspecified protein-calorie malnutrition; Z68.1 Body mass index [BMI] 19.9 or less, adult; J90 Pleural effusion, not elsewhere classified; B37.89 Other sites of candidiasis; J98.11 Atelectasis; K44.9 Diaphragmatic hernia without obstruction or gangrene; I25.10 Atherosclerotic heart disease of native coronary artery without angina pectoris; F32.9 Major depressive disorder, single episode, unspecified; E86.0 Dehydration; D64.9 Anemia, unspecified; L98.411 Non-pressure chronic ulcer of buttock limited to breakdown of skin; K22.0 Achalasia of cardia; K57.10 Diverticulosis of small intestine without perforation or abscess without bleeding; K29.00 Acute gastritis without bleeding; Z85.01 Personal history of malignant neoplasm of esophagus; Z87.891 Personal history of nicotine dependence